=== PATIENT | female | born 1970 | race Caucasian/White ===

== ENCOUNTER 2016-08-24 18:41 | Emergency (ER) | payer BC ==
[2016-08-24 19:09] LABS: BASO % 0.3 % (0-6); EOS % 2.6 % (0-6); GRAN % 62.7 % (47-80); HEMOGLOBIN 13.9 gm/dl (11.6-16.0); LYMPH % 26.1 % (16-45); MEAN CELL VOLUME 90.1 fl (81-97); MEAN CORPUSCULAR HEMOGLOBIN 30.5 pg (27-33); MEAN CORPUSCULAR HGB CONC 33.9 g/dl (32-36); MEAN PLATELET VOLUME 8.2 fl (7.4-10.4); MONO % 8.3 % (0-9); PLATELET COUNT 390 K/uL (130-400); RED BLOOD COUNT 4.55 M/uL (3.80-5.40); RED CELL DISTRIBUTION WIDTH 12.7 % (11.5-14.5); WHITE BLOOD COUNT W/O DIFF 12.3 K/uL (4.2-12.2)
[2016-08-24 19:20] LABS: ALB/GLOB RATIO 1.3 (1.1-1.8); ALBUMIN 4.6 gm/dL (3.5-5.0); ALKALINE PHOSPHATASE 80 U/L (38-126); ALT/SGPT 23 U/L (9-52); ANION GAP 9.5 (7-16); AST/SGOT 16 U/L (14-36); BILIRUBIN,TOTAL 0.48 mg/dL (0.2-1.3); BLOOD UREA NITROGEN 12 mg/dL (7-17); CARBON DIOXIDE 23.5 mmol/L (22-30); CREATININE 0.7 mg/dL (0.52-1.04); EST GLOMERULAR FILTRATION RATE > 60 ml/min; GLUCOSE,RANDOM 104 mg/dL (70-110); TOTAL PROTEIN 8.1 gm/dL (6.3-8.2)
[2016-08-24 19:32] LABS: CKMB 0.5 ug/L (0-6)
[2016-08-24 19:33] LABS: TROPONIN I < 0.012 ng/mL (0.00-0.034)
[2016-08-24] MEDS ORDERED: ASPIRIN 81 MG CHEWABLE TABLET PO ONE (19:36)
--- NOTE | 2016-08-24 19:38 | Emergency Department Record ---
History of Present Illness - General Chief Complaint: Chest Pain Stated Complaint: CHEST PAIN Time Seen by Provider: 08/24/16 19:15 Source: Patient Mode of Arrival: Ambulatory Limitations: No limitations - History of Present Illness Initial Comments: pt has had intermittant cp for 10 hrs on the r side of her chest that is tight feeling, radiates into the neck and lasts a few minutes. she has never had anything like this before. she has no other symptoms. MD Complaint: Chest pain Onset/Timin -: Days(s) Pain Location: Right chest Pain Radiation: Neck Severity: Mild Severity scale (1-10): 4 Quality: Tightness Consistency: Constant Improves With: Nothing Worsens With: Nothing Treatments Prior to Arrival: None - Related Data Allergies Allergy/AdvReac Type Severity Reaction Status Date / Time No Known Drug Allergies Allergy Verified 08/24/16 18:47 Travel Screening - Travel/Exposure Within Last 30 Days Have you traveled within the last 30 days?: No Review of Systems Reviewed: No additional complaints except as noted below Constitutional: Reports: As per HPI. Denies: Chills, Fever, Malaise, Night sweats, Weakness, Weight change Eyes: Reports: As per HPI. Denies: Eye discharge, Eye pain, Photophobia, Vision change ENT: Reports: As per HPI. Denies: Congestion, Dental pain, Ear pain, Epistaxis , Hearing loss, Throat pain Respiratory: Reports: As per HPI. Denies: Cough, Dyspnea, Hemoptysis, Stridor, Wheezes Cardiovascular: Reports: As per HPI. Denies: Arrhythmia, Chest pain, Dyspnea on exertion, Edema, Murmurs, Orthopnea, Palpitations, Paroxysmal nocturnal dyspnea, Rheumatic Fever, Syncope Endocrine: Reports: As per HPI. Denies: Fatigue, Heat or cold intolerance, Polydipsia, Polyuria Gastrointestinal: Reports: As per HPI. Denies: Abdominal pain, Constipation, Diarrhea, Hematemesis, Hematochezia, Melena, Nausea, Vomiting Genitourinary: Reports: As per HPI. Denies: Abnormal menses, Discharge, Dyspareunia, Dysuria, Frequency, Hematuria, Incontinence, Retention, Urgency Musculoskeletal: Reports: As per HPI. Denies: Arthralgia, Back pain, Gout, Joint swelling, Myalgia, Neck pain Skin: Reports: As per HPI. Denies: Bruising, Change in color, Change in hair/ nails, Lesions, Pruritus, Rash Neurological: Reports: As per HPI. Denies: Abnormal gait, Confusion, Headache, Numbness, Paresthesias, Seizure, Tingling, Tremors, Vertigo, Weakness Psychiatric: Reports: As per HPI. Denies: Anxiety, Auditory hallucinations, Depression, Homicidal thoughts, Suicidal thoughts, Visual hallucinations Hematological/Lymphatic: Reports: As per HPI. Denies: Anemia, Blood Clots, Easy bleeding, Easy bruising, Swollen glands Past Medical History - SOCIAL HISTORY Smoking Status: Former smoker Alcohol Use: Rare Drug Use: None - RESPIRATORY Hx Respiratory Disorders: No - CARDIOVASCULAR Hx Cardio Disorders: No - NEURO Hx Neuro Disorders: No - GI Hx GI Disorders: No - Hx Genitourinary Disorders: No - ENDOCRINE Hx Endocrine Disorders: No - MUSCULOSKELETAL Hx Musculoskeletal Disorders: No - PSYCH Hx Psych Problems: No - HEMATOLOGY/ONCOLOGY Hx Hematology/Oncology Disorders: No Family Medical History Any Significant Family History?: Yes Family Hx Comment (NOT TO BE USED IN PLACE OF ITEMS BELOW): Mom-Hypothyroid Hx Cancer: Grandparents Hx Diabetes: Grandparents Hx HTN: Grandparents Physical Exam - General General Appearance: Alert, Oriented x3, Cooperative, Mild distress - Head Head exam: Normal inspection - Eye Eye exam: Normal appearance, PERRL, EOMI Pupils: Normal accommodation - ENT ENT exam: Normal exam, Mucous membranes moist, Normal external ear exam, Normal orophraynx Ear exam: Normal external inspection. negative: External canal tenderness Nasal Exam: Normal inspection. negative: Discharge, Sinus tenderness Mouth exam: Normal external inspection, Tongue normal Teeth exam: Normal inspection. negative: Dental caries Throat exam: Normal inspection. negative: Tonsillar erythema, Tonsillar exudate - Neck Neck exam: Normal inspection, Full ROM. negative: Tenderness - Respiratory Respiratory exam: Normal lung sounds bilaterally. negative: Respiratory distress - Cardiovascular Cardiovascular Exam: Regular rate, Normal rhythm, Normal heart sounds - GI/Abdominal GI/Abdominal exam: Soft, Normal bowel sounds. negative: Tenderness - Rectal Rectal exam: Deferred - exam: Deferred - Extremities Extremities exam: Normal inspection, Full ROM, Normal capillary refill. negative: Tenderness - Back Back exam: Reports: Normal inspection, Full ROM. Denies: Muscle spasm, Rash noted, Tenderness - Neurological Neurological exam: Alert, CN II-XII intact, Normal gait, Oriented X3 - Psychiatric Psychiatric exam: Normal affect, Normal mood - Skin Skin exam: Dry, Intact, Normal color, Warm Course Vital Signs 08/24/16 18:42 Temperature 99.3 F Pulse Rate 99 H Respiratory 20 Rate Blood Pressure 123/95 Pulse Ox 96 Medical Decision Making - Data Complexity MDM Data: Labs Ordered and/or Reviewed, X-Ray Ordered and/or Reviewed, EKG Ordered and/or Reviewed - Lab Data Result diagrams: 08/24/16 18:55 08/24/16 18:55 Lab Results 08/24/16 08/24/16 Range/Units 18:55 18:55 WBC 12.3 H (4.2-12.2) K/uL RBC 4.55 (3.80-5.40) M/uL Hgb 13.9 (11.6-16.0) gm/dl Hct 41.0 (35.0-47.0) % MCV 90.1 (81-97) fl MCH 30.5 (27-33) pg MCHC 33.9 (32-36) g/dl RDW 12.7 (11.5-14.5) % Plt Count 390 (130-400) K/uL MPV 8.2 (7.4-10.4) fl Gran % 62.7 (47-80) % Lymphocytes % 26.1 (16-45) % Monocytes % 8.3 (0-9) % Eosinophils % 2.6 (0-6) % Basophils % 0.3 (0-6) % Sodium 139 (136-145) mmol/L Potassium 3.6 (3.5-5.1) mmol/L Chloride 106 (98-107) mmol/L Carbon Dioxide 23.5 (22-30) mmol/L Anion Gap 9.5 (7-16) BUN 12 (7-17) mg/dL Creatinine 0.7 (0.52-1.04) mg/dL Estimated GFR > 60 ml/min Random Glucose 104 (70-110) mg/dL Calcium 9.5 (8.5-10.1) mg/dL Total Bilirubin 0.48 (0.2-1.3) mg/dL AST 16 (14-36) U/L ALT 23 (9-52) U/L Alkaline Phosphatase 80 (38-126) U/L CK-MB (CK-2) 0.5 (0-6) ug/L Troponin I < 0.012 (0.00-0.034) ng/mL Total Protein 8.1 (6.3-8.2) gm/dL Albumin 4.6 (3.5-5.0) gm/dL Globulin 3.5 (1.4-4.8) gm/dL Albumin/Globulin Ratio 1.3 (1.1-1.8) - EKG Data -: EKG Interpreted by Ok EKG: Normal EKG - Radiology Data Radiology results: Report reviewed, Image reviewed Disposition Disposition: Discharge Clinical Impression: Chest pain Qualifiers: Chest pain type: unspecified Qualified Code(s): R07.9 - Chest pain, unspecified Disposition: Home, Self-Care Condition: (1) Good Instructions: Chest Pain (ED) Additional Instructions: follow up with family doctor tomorrow. return sooner if worse Forms: Patient Portal Access
[2016-08-24] MEDS ORDERED: KETOROLAC 30 MG/ML VIAL IVP ONE (20:38)
--- NOTE | 2016-08-25 14:26 | RADIOLOGY REPORT ---
EXAM: CHEST, TWO VIEWS HISTORY: RIGHT UPPER CHEST PAIN AND TIGHTNESS RADIATING INTO NECK. TECHNIQUE: Upright PA and lateral views of the chest were obtained. Comparison: None. FINDINGS: The cardiomediastinal silhouette is normal in size and configuration. The pulmonary vasculature is nondilated. No confluent air space opacity is seen nor is there costophrenic angle blunting or pneumothorax. Mild degenerative end plate changes are scattered within the visualized spine. IMPRESSION: NO RADIOGRAPHIC EVIDENCE OF ACUTE CARDIOPULMONARY DISEASE. JOB NUMBER: [id number] MTDD
== END 2016-08-24 23:36 | disposition home or self-care (01) ==
LOC: ER 18:41
DX: R07.89 Other chest pain (principal); R51 Headache
CPT/HCPCS: 71020; 80053; 82553; 84484; 85025; 85379; 93005; 93010; 96374; 99284; J1885